=== PATIENT | female | born 1935 | race Caucasian/White ===

== ENCOUNTER → 2021-12-19 | Outpatient (CLI) | payer MEDICARE ==
[~2021-12-19] MED LIST: ACETAMINOPHEN325 M1 PO; CIPRO 500MG TA500 MG PO; COGNITEX; CURAMIN; HEALTHYLAX17 GM/Dose PO; ISOSORBIDE30 MG PO; KEPPRA 500MG500 MG PO; LASIX20 M1 PO; MACUGUARD; MASON NATURAL1000 MG PO; MELATIN 3 MG-11 TAB PO; NITROGLYCERIN0.4 M1 SL; NORVASC 10MG10 MG PO; PACERONE200 MG PO; SERRAPEPTASE; TMG; TOPROL XL 50MG50 MG PO; TURMERIC; Vitamin D3 PO; XALATAN 2.5 ML2.5 ML OP; [UNRECOGNIZED DRUG - OTHER]; [UNRECOGNIZED DRUG - OTHER]; [UNRECOGNIZED DRUG - OTHER]; blood pressure
== END ==
LOC: RAD 09:25
DX: M17.11 Unilateral primary osteoarthritis, right knee (principal)

== ENCOUNTER 2021-12-29 20:39 | Emergency (ER) | payer MEDICARE ==
[~2021-12-29] VITALS: Ht 157.5 cm; Wt 65.9 kg
[2021-12-29 22:18] LABS: BASO # 0.02 K/mm3 (0.02-0.10); EOS % 1.7 % (1.0-5.0); HEMATOCRIT 35.8 % (37.0-47.0); HEMOGLOBIN 11.7 g/dL (12.5-16.0); LYMPH# 0.92 K/mm3 (1.50-4.00); MEAN CELL VOLUME 100 fl (78-100); MEAN CORPUSCULAR HEMOGLOBIN 33 pg (27-31); MEAN CORPUSCULAR HGB CONC 33 g/dL (33-37); MONO # 0.92 K/mm3 (0.20-0.80); NEU # 3.85 K/mm3 (1.40-6.50); PLATELET COUNT 184 K/mm3 (130-400); RED BLOOD COUNT 3.59 M/mm3 (4.10-5.30); RED CELL DISTRIBUTION WIDTH 12.9 % (11.5-14.5); WHITE BLOOD COUNT 5.8 K/mm3 (4.8-10.8)
[2021-12-29 22:29] LABS: ALBUMIN 4.3 g/dL (3.4-4.8); POTASSIUM 4.4 mmol/L (3.5-5.1)
[2021-12-29 22:30] LABS: CALCIUM 9.6 mg/dL (8.3-10.5)
[2021-12-29 22:33] LABS: TOTAL BILIRUBIN 0.4 mg/dL (0.2-1.2)
[2021-12-29 23:36] VITALS: BP 134/69
== END 2021-12-29 23:25 | disposition home or self-care (01) ==
LOC: ED 20:39
PROVIDERS: Family Medicine
DX: K43.9 Ventral hernia without obstruction or gangrene (principal); I25.10 Atherosclerotic heart disease of native coronary artery without angina pectoris; I48.91 Unspecified atrial fibrillation; Z79.01 Long term (current) use of anticoagulants; Z95.5 Presence of coronary angioplasty implant and graft; Z28.310 Unvaccinated for COVID-19